=== PATIENT | female | born 1985 | race Caucasian/White ===

== ENCOUNTER 2017-01-09 19:21 | Inpatient (IN) ==
[2017-01-09] MEDS ORDERED: ACETAMINOPHEN 325 MG TABLET PO PRN (19:29)
[2017-01-09] MEDS ORDERED: BUTORPHANOL 2 MG/ML VIAL IV PRN (19:29)
[2017-01-09] MEDS ORDERED: ONDANSETRON 4 MG/2 ML VIAL IV PRN (19:29)
[2017-01-09] MEDS ORDERED: OXYTOCIN/LR 20 UNIT/1,000 ML BAG IV SCH (19:30)
[2017-01-09] MEDS: LACTATED RINGERS 1,000 ML IV SCH ×3 (19:49→21:55)
[2017-01-09 19:55] LABS: Basophils # 0.1 10*3/uL (0.0-0.2); Basophils % 0.4 % (0.0-0.8); Eosinophils % 0.3 % (0.00-10.9); Hematocrit 37.8 VOL% (35.7-47.0); Hemoglobin 13.1 GM/DL (12.0-16.0); Immature Granulocytes % 1.5 %; Immature Granulocytes Absolute 0.19 #; Lymphocytes # 3.1 10*3/uL (1.4-4.0); Lymphocytes % 24.7 % (21.3-54.2); Mean Corpuscular HGB Conc 34.7 GM/DL (32-36); Mean Corpuscular Hemoglobin 32 PG (27-34); Mean Corpuscular Volume 93.3 FL (87-102); Mean Platelet Volume 10.8 FL (9.6-12.0); Monocytes # 0.7 10*3/uL (0.11-0.8); Monocytes % 5.9 % (1.7-12.7); Neutrophils # 8.4 10*3/uL (1.4-7.4); Neutrophils % 67.2 % (38.7-73.9); Platelet Count 196 T/CUMM (130-400); Red Blood Count 4.05 MC/CUMM (3.8-5.5); Red Cell Distribution Width 14.3 % (9.3-17.3); White Blood Count 12.5 T/CUMM (4-12)
[2017-01-09] MEDS ORDERED: fentaNYL 2 MCG/ROPIV 0.2% EPID 150 ML EPIDURAL SCH (20:38)
[2017-01-09] MEDS ORDERED: CITRIC ACID/SODIUM CITRATE 30 ML UDCUP PO ONE (20:38)
[2017-01-09] MEDS ORDERED: diphenhydrAMINE 50 MG/1 ML VIAL IV PRN ×2 (20:38)
[2017-01-09] MEDS ORDERED: ePHEDrine 50 MG/ML AMP IV PRN (20:38)
[2017-01-09] MEDS ORDERED: ONDANSETRON 4 MG/2 ML VIAL IV ONE (20:38)
[2017-01-09] MEDS ORDERED: PROMETHAZINE 25 MG/1 ML VIAL IM ONE (20:38)
[2017-01-09] MEDS ORDERED: FAMOTIDINE 20 MG/2 ML VIAL IV ONE (20:38)
[2017-01-09] MEDS ORDERED: hydrOXYzine HCL 25 MG/1 ML VIAL IM PRN (20:38)
[2017-01-09 22:44] LABS: Apearance,Urine CLEAR (Clear); Bilirubin,Urine Negative (Negative); Blood, Urine Negative (Negative); Glucose,Urine (UA) Negative (Negative); Ketones,Urine 20 mg/dL (Negative); Mucus,Urine Occasional /LPF (Occasional); Nitrite,Urine Negative (Negative); Protein,Urine Negative; RBC,Urine <1 /HPF (0-4); Renal Epithelial Cells,Urine Occasional /HPF (<1); Squamous Epithelial Cell,Urine Occasional /HPF (0-10); Urine Color Straw (Yellow); Urine Specific Gravity 1.004 (1.001-1.035); Urine Urobilinogen < 2.0 EU/DL (0.2-1.0); WBC,Urine <1 /HPF (0-6)
[2017-01-10] MEDS ORDERED: LIDOCAINE 1% 50 ML VIAL ONE (05:59)
[2017-01-10] MEDS ORDERED: miSOPROStol 200 MCG TABLET ONE (05:59)
[2017-01-10] MEDS ORDERED: METHYLERGONOVINE 0.2 MG/1 ML AMP ONE (05:59)
[2017-01-10] MEDS ORDERED: CARBOPROST TROMETHAMINE 250 MCG/ML AMP IM ONE (06:00)
--- NOTE | 2017-01-10 06:36 | OB/GYN History & Physical ---
History of Present Illness Chief complaint: 39 weeks active labor History of present illness: Ms. Ashley is a 31 year old female Home Medications Medication Instructions Recorded Confirmed Type Vits #90/Iron Fum/FA 1 tablet PO DIRECTED 12/20/16 01/09/17 History [ Formula Tablet] Allergies Allergy/AdvReac Type Severity Reaction Status Date / Time No Known Allergies Allergy Verified 10/30/16 17:19 12 point system: reviewed and no additional remarkable complaints except as stated Medical,Surgical,& Family Hx - Medical History Musculoskeletal: No history of: Amputation Reproductive: No history of: Ectopic , Complication - Surgical History Reproductive Surgeries: Surgical HX of;: Gynecologic Surgery (lap x2 and left ovary) Patient denies;: Section - Family History Family History: Reports;: Family Cancer (pt's father lung cancer, pgm-ovarian, mgf-prostate), Family Diabetes (pt's mother and mgm), Family Heart Disease ( father CHF), Family Hematology (father anemia), Family Stroke (brother), Additional Family History (father-COPD, diverticulitis) - Social History Smoking Status: Current every day smoker Frequency of Alcohol Use: None Type of Drug Use: None 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: Vital Signs Temp Pulse Resp BP Pulse Ox 01/10/17 04:00 96.5 F L 67 18 112/64 100 01/10/17 00:00 96.9 F L 80 18 97/64 100 01/09/17 20:00 97.4 F L 98 H 20 114/74 01/09/17 19:28 97.4 F L 104 H 20 115/78 100 General appearance: normal weight, no acute distress - Head Head exam: Present: normal inspection, normocephalic, atraumatic - Eye Eye exam: Present: EOMI - Neck Neck exam: Present: normal inspection - Respiratory Respiratory exam: Present: clear to auscultation bilaterally - Breast Breasts: as per HPI Menstruation: as per HPI - Cardiovascular Cardiovascular exam: Present: regular rate and rhythm - GI/Abdominal GI/Abdominal exam: Present: normal bowel sounds - Extremities Exam Extremities exam: Present: normal inspection, normal capillary refill - Back Exam Back exam: Present: normal inspection - Neurological Exam Neurological exam: Present: alert, oriented X3 - Psychiatric Psychiatric exam: Present: normal affect, normal mood - Skin Skin exam: Present: normal color, warm Assessment and Plan (1) with 39 completed weeks gestation Status: Acute Current Visit: Yes (2) Active labor Status: Acute Current Visit: Yes Results - Labs CBC & BMP: 01/09/17 19:43
--- NOTE | 2017-01-10 06:44 | OB/GYN Progress Note ---
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 Alford dictating vaginal delivery And in LDR environment under sterile conditions, the patient progressed to completely dilated. She was allowed to push and under [epidural] anesthesia had a normal spontaneous vaginal delivery of a live born female infant unweighed Apgars pending over a first-degree midline tear. The 's nose and oropharynx were bulb and DeLee suctioned, and the infant had spontaneous cry after delivery. There is noted to be a nuchal cord 1 which was easily reduced the cord was doubly clamped and cut and the was handed over to the pediatric team for care. Cord blood was obtained the placenta delivered spontaneously intact and IV Pitocin was done. The first-degree midline tear was repaired with 2-0 Monocryl suture in usual fashion under epidural anesthesia there were no cervical tears. There were no periurethral tears. Estimated blood loss was 250 mL. There were no complications. The bladder was emptied using a catheter prior to delivery. All sponge needle and instrument counts were correct -3 at the end of the delivery. 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
--- NOTE | 2017-01-10 06:47 | Discharge Summary ---
Hospital Course - Hospital Course Hospital Course: the patient did well. She had quick return of bowel bladder function. She remained afebrile and normotensive throughout her hospitalization. She is constantly discharged on day #1 by request as her youngest daughter has her first recital. Diagnosis - Discharge Diagnosis (1) with 39 completed weeks gestation Status: Acute (2) Active labor Status: Acute Discharge Plan - Discharge Data Disposition: Disch To Home/Self Care Condition at Discharge: Stable Discharge Diet: regular diet Activity: resume usual activities as tolerated, other (Pelvic rest) Hygiene: may shower Driving: no restrictions Contact your physician if you experience:: fever over 101, Difficulty voiding, Redness or swelling, Nausea/Vomiting, Shortness of breath, Bleeding, pain uncontrolled by pain medications - Discharge Medications New HYDROcodone/ACETAMIN 5-325 [Crawford 5-325] 1 tablet PO Q4H PRN #10 tablet PRN Reason: Abdominal Pain Continue Vits #90/Iron Fum/FA [ Formula Tablet] 1 tablet PO DIRECTED - Follow Up or Referral Follow Up: Chip Alford MD [Physician] - 2 Weeks - Forms/Instructions Exam - Constitutional Vitals: Period Temp Pulse Resp BP Sys/[place] Pulse Ox Last 24 Hr 96.5 F-97.4 F 67-104 18-20 97-115/64-78 100-100 Discharge Results Labs on day of discharge: Labs from last 24 hours 01/09/17 01/09/17 01/09/17 21:26 19:43 19:43 WBC RBC Hgb Hct MCV MCH MCHC RDW Plt Count MPV Neut % (Auto) Lymph % (Auto) Reynolds % (Auto) Eos % (Auto) Baso % (Auto) Neut # (Auto) Lymph # (Auto) Reynolds # (Auto) Eos # (Auto) Baso # (Auto) Immature Gran % Nucleated RBC % Immature Gran # Nucleated RBCs # Urine Color Straw Urine Appearance Clear Urine pH 6.0 Ur Specific Spring 1.004 Urine Protein Negative Urine Glucose (UA) Negative Urine Ketones 20 Urine Blood Negative Urine Nitrate Negative Urine Bilirubin Negative Urine Urobilinogen < 2.0 H Urine Leukocytes Negative Urine RBC <1 Urine WBC <1 Ur Squamous Epith Cells Occasional Ur Renal Epithelial Cell Occasional Urine Mucus Occasional Ur Culture Indicated? Not indicated Treponema pallidum IgG Nonreactive Blood Type A NEGATIVE Antibody Screen Positive Antibody Identification Anti-D Blood Bank Comment 01/09/17 19:43 WBC 12.5 H RBC 4.05 Hgb 13.1 Hct 37.8 MCV 93.3 MCH 32 MCHC 34.7 RDW 14.3 Plt Count 196 MPV 10.8 Neut % (Auto) 67.2 Lymph % (Auto) 24.7 Reynolds % (Auto) 5.9 Eos % (Auto) 0.3 Baso % (Auto) 0.4 Neut # (Auto) 8.4 H Lymph # (Auto) 3.1 Reynolds # (Auto) 0.7 Eos # (Auto) 0.0 Baso # (Auto) 0.1 Immature Gran % 1.5 Nucleated RBC % 0.0 Immature Gran # 0.19 Nucleated RBCs # 0.00 Urine Color Urine Appearance Urine pH Ur Specific Spring Urine Protein Urine Glucose (UA) Urine Ketones Urine Blood Urine Nitrate Urine Bilirubin Urine Urobilinogen Urine Leukocytes Urine RBC Urine WBC Ur Squamous Epith Cells Ur Renal Epithelial Cell Urine Mucus Ur Culture Indicated? Treponema pallidum IgG Blood Type Antibody Screen Antibody Identification Blood Bank Comment DS: Provider Date of admission: 01/09/17 19:29 Primary care physician: Shun Valles DO Attending physician on admission: Gertrude Gabriel Consults: 01/09/17 19:29 Consult to Anesthesiology [CONS] Routine Consulting Provider: Reason for Anesthesiology: Epidural Consult Comment: Epidural for pain managment Discharging clinician: Gertrude Gabriel Expected date of discharge: 01/11/17
[2017-01-10] MEDS ORDERED: ONDANSETRON 4 MG/2 ML VIAL IV PRN (07:22)
[2017-01-10] MEDS ORDERED: BISACODYL 10 MG SUPP RECTAL PRN (07:22)
[2017-01-10] MEDS ORDERED: HYDROCORTISONE 2.5% RECTAL CREAM 30 GM TUBE TOP PRN (07:22)
[2017-01-10] MEDS ORDERED: BENZOCAINE 20%/MENTHOL 0.5% SPRAY 56 GM CAN TOP PRN (07:22)
[2017-01-10] MEDS ORDERED: RHO(D) IMMUNE GLOBULIN 300 MCG SYRINGE IM ONE (07:22)
[2017-01-10] MEDS ORDERED: ACETAMINOPHEN 325 MG TABLET PO PRN (07:22)
[2017-01-10] MEDS ORDERED: MEASLES/MUMPS/RUBELLA VACCINE 0.5 ML VIAL SUBCUT ONE (07:22)
[2017-01-10] MEDS ORDERED: WITCH HAZEL PADS 100/JAR TOP PRN (07:22)
[2017-01-10] MEDS ORDERED: LANOLIN 50% CREAM 0.3 OZ TUBE TOP PRN (07:22)
[2017-01-10] MEDS ORDERED: OXYTOCIN/LR 20 UNIT/1,000 ML BAG IV ONE (07:22)
[2017-01-10] MEDS ORDERED: DIPH/TET/ACEL PERT BOOSTER VACCINE 0.5 ML VIAL IM ONE (07:22)
[2017-01-10] MEDS ORDERED: oxyCODONE/ACETAMINOPHEN 5-325 MG TABLET PO PRN (07:22)
[2017-01-10] MEDS: IBUPROFEN 800 MG TABLET PO PRN ×2 (10:00→20:10)
[2017-01-10] MEDS: oxyCODONE/ACETAMINOPHEN 5-325 MG TABLET PO PRN ×2 (11:15→20:10)
[2017-01-10] MEDS: DOCUSATE SODIUM 100 MG CAPSULE PO SCH ×2 (13:53→20:10)
[2017-01-10] MEDS ORDERED: MULTIVITAMIN (PRENATAL) TABLET PO SCH (16:43)
[2017-01-11 07:03] LABS: Basophils # 0.1 10*3/uL (0.0-0.2); Basophils % 0.5 % (0.0-0.8); Eosinophils # 0.1 10*3/uL (0.0-0.87); Eosinophils % 0.8 % (0.00-10.9); Hematocrit 29.7 VOL% (35.7-47.0); Hemoglobin 10.4 GM/DL (12.0-16.0); Immature Granulocytes Absolute 0.11 #; Lymphocytes # 3.4 10*3/uL (1.4-4.0); Lymphocytes % 31.7 % (21.3-54.2); Mean Corpuscular Hemoglobin 33 PG (27-34); Mean Corpuscular Volume 95.2 FL (87-102); Mean Platelet Volume 10.8 FL (9.6-12.0); Monocytes # 0.6 10*3/uL (0.11-0.8); Neutrophils # 6.4 10*3/uL (1.4-7.4); Platelet Count 183 T/CUMM (130-400); Red Blood Count 3.12 MC/CUMM (3.8-5.5); Red Cell Distribution Width 14.3 % (9.3-17.3); White Blood Count 10.7 T/CUMM (4-12)
[2017-01-11 08:07] VITALS: BP 93/62
[2017-01-11] MEDS: IBUPROFEN 800 MG TABLET PO PRN (09:30)
[2017-01-11] MEDS: DOCUSATE SODIUM 100 MG CAPSULE PO SCH (09:30)
[2017-01-11] MEDS: oxyCODONE/ACETAMINOPHEN 5-325 MG TABLET PO PRN (11:00)
--- NOTE | 2017-01-12 09:13 | Anesthesia Post-Op ---
Anesthesia Post OP - Post Ansesthetic Evaluation Patient seen in post op: Yes Resp: within normal limits CV: within normal limits Mental: within normal limits Temp: within normal limits [id number]: within normal limits Nausea and Vomiting: within normal limits Pain: within normal limits
== END 2017-01-11 14:15 | disposition home or self-care (01) | DRG 775 ==
LOC: N.LDOUT 19:21 → N.LD 19:23 → N.OB 01-10 16:34
PROVIDERS: ADMIT Specialist; ATTEND Specialist